=== PATIENT | female | born 1960 | race Caucasian/White ===

== ENCOUNTER 2017-01-23 10:04 | Inpatient (IN) | payer OTHER ==
[~2017-01-23] VITALS: Ht 165.1 cm; Wt 93.2 kg
[2017-01-23] MEDS ORDERED: ONDANSETRON 4MG/2ML VIAL (J2405) As Ordered ONE ×2 (10:58→14:13)
[2017-01-23] MEDS ORDERED: ONDANSETRON 4 MG ORAL DISINTEGRATING TAB (S0181) PO ONE (11:00)
[2017-01-23] MEDS ORDERED: ONDANSETRON 4MG/2ML VIAL (J2405) IV ONE (11:00)
[2017-01-23] MEDS ORDERED: KETOROLAC 30 MG/ML VIAL (J1885) IV ONE (11:00)
[2017-01-23] MEDS ORDERED: MORPHINE 2 MG/ML 1ML SYRINGE IV ONE (11:00)
[2017-01-23 11:04] LABS: BASO % 0.3 % (0.0-1.0); IMMATURE GRANULOCYTE % 0.6 % (0-0); LYMPH # 0.5 10^3/uL (1.5-4.5); LYMPH % 4.4 % (24.0-44.0); MEAN CORPUSCULAR HGB CONC 34.3 g/dl (32.0-36.5); MEAN CORPUSCULAR VOLUME 87.6 fl (80.0-96.0); MONO # 0.4 10^3/uL (0.0-0.8); MONO % 4.2 % (0.0-5.0); NEUTROPHILS # 9.4 10^3/uL (1.8-7.7); NEUTROPHILS % 90.5 % (36.0-66.0); PLATELET COUNT, AUTOMATED 215 10^3/uL (150-450); RED CELL DISTRIBUTION WIDTH 12.5 % (11.5-14.5); WHITE BLOOD COUNT 10.4 10^3/uL (4.0-10.0)
[2017-01-23] MEDS ORDERED: ACETAMINOPHEN 325 MG TAB PO ONE (11:15)
[2017-01-23 11:18] LABS: INR 1.12
[2017-01-23 11:27] LABS: ALBUMIN 3.5 GM/DL (3.2-5.2); ALBUMIN/GLOBULIN RATIO 0.95 (1.00-1.93); ALKALINE PHOSPHATASE 70 U/L (45-117); ALT/SGPT 36 U/L (12-78); ANION GAP 7 MEQ/L (8-16); AST/SGOT 11 U/L (15-37); BILIRUBIN,TOTAL 0.8 MG/DL (0.2-1.0); BLOOD UREA NITROGEN 9 MG/DL (7-18); CARBON DIOXIDE LEVEL 27 MEQ/L (21-32); CHLORIDE LEVEL 104 MEQ/L (98-107); CREATININE FOR GFR 0.86 MG/DL (0.55-1.02); GLOMERULAR FILTRATION RATE > 60.0 (>51); GLUCOSE, FASTING 150 MG/DL (70-105); POTASSIUM SERUM 4.1 MEQ/L (3.5-5.1); SODIUM LEVEL 138 MEQ/L (136-145); TOTAL PROTEIN 7.2 GM/DL (6.4-8.2)
[2017-01-23] MEDS ORDERED: ISOVUE-370 76% 100ML VIAL (Q9967) As Ordered ONE (11:30)
--- NOTE | 2017-01-23 12:06 | REP ---
CT of the abdomen and pelvis with IV contrast, without bowel contrast: The appendix is distended measuring up to 15 mm in diameter. This a calculus in the gallbladder neck. The gallbladder wall is thickened and demonstrates enhancement. There is edema/inflammation in the periappendiceal mesentery. There are tiny air bubbles in the periappendiceal mesentery compatible with microperforation. The there is no pneumoperitoneum otherwise. There is no ascites. No bowel distension. The visualized lung spear are unremarkable. The hepatic parenchyma, gallbladder, pancreas, spleen, adrenals, kidneys and abdominal aorta are unremarkable. There is a small hiatal hernia. In the pelvis the uterus and adnexa are unremarkable. There are occasional diverticula in the descending colon and sigmoid colon without diverticulitis. Impression: Acute appendicitis with microperforation. No ascites. Small hiatal hernia. Diverticulosis without diverticulitis. Otherwise, negative CT of the abdomen and pelvis. Signed by Duncan Rock MD 01/23/2017 11:57 A
[2017-01-23] MEDS ORDERED: PIPERACILLIN/TAZOBACTAM SOD 3.375 GM in D5W 50 ML IV ONE (12:15)
[2017-01-23] MEDS ORDERED: ZOSYN 3.375 GM VIAL (J2543) As Ordered ONE (12:30)
[2017-01-23] MEDS ORDERED: BUPIVACAINE/EPIN 0.25% 30 ML VIAL As Ordered ONE (13:26)
[2017-01-23] MEDS ORDERED: PHENYLephrine HCL 500 MCG/5 ML (100MCG/ML) SYRINGE (J2370) As Ordered ONE (14:49)
[2017-01-23] MEDS ORDERED: fentaNYL 100 MCG/2 ML INJECTION (J3010) As Ordered ONE ×3 (14:55→16:20)
[2017-01-23] MEDS ORDERED: PROPOFOL 200 MG/20 ML VIAL As Ordered ONE (14:55)
[2017-01-23] MEDS ORDERED: MIDAZOLAM INJ 2 MG/2 ML VIAL (J2250) As Ordered ONE (14:55)
[2017-01-23] MEDS ORDERED: ROCURONIUM BROMIDE 50 MG/5 ML VIAL/SYRINGE As Ordered ONE (14:55)
[2017-01-23] MEDS ORDERED: NEOSTIGMINE 10 MG/10 ML VIAL (J2710) As Ordered ONE (14:56)
[2017-01-23] MEDS ORDERED: GLYCOPYRROLATE INJ 0.2 MG/ML 2 ML VIAL As Ordered ONE (14:56)
[2017-01-23] MEDS ORDERED: METOCLOPRAMIDE INJ 10MG/2ML VIAL (J2765) As Ordered ONE (14:56)
[2017-01-23] MEDS ORDERED: LIDOCAINE 2% INJ 100 MG/5 ML SDV (FOR ANES.) As Ordered ONE (14:56)
[2017-01-23] MEDS ORDERED: LABETALOL HCL 100 MG/20 ML VIAL As Ordered ONE (16:03)
[2017-01-23] MEDS ORDERED: MORPHINE 2 MG/ML 1ML SYRINGE IV PRN (16:15)
[2017-01-23] MEDS ORDERED: PERCOCET 5MG/325MG TAB As Ordered ONE (16:20)
[2017-01-23] MEDS: fentaNYL 100 MCG/2 ML INJECTION (J3010) IV PRN ×4 (16:26→16:48)
[2017-01-23] MEDS ORDERED: LR 1,000 ML IV SCH (16:30)
[2017-01-23] MEDS ORDERED: HYDROmorphone HCL 1 MG/ML SYRINGE (J1170) IV PRN (16:30)
[2017-01-23] MEDS ORDERED: ONDANSETRON 4MG/2ML VIAL (J2405) IV PRN (16:30)
[2017-01-23] MEDS ORDERED: METOCLOPRAMIDE INJ 10MG/2ML VIAL (J2765) IV PRN (16:30)
[2017-01-23] MEDS ORDERED: PERCOCET 5MG/325MG TAB PO PRN (16:30)
[2017-01-23] MEDS: LR 1,000 ML IV SCH (16:34)
--- NOTE | 2017-01-23 17:14 | HPE ---
DATE OF ADMISSION: 01/23/2017 CHIEF COMPLAINT: Abdominal pain. HISTORY OF PRESENT ILLNESS The patient is a 56-year-old female who presents with right lower quadrant abdominal pain that started on . It had originally started off periumbilically, gradually progressed down towards the right lower quadrant, was associated with chills and some nausea. No changes in bowel movements. No recent trauma or travel. She came into emergency room this morning, was found to have acute appendicitis on CT, and I was called to evaluate. Currently she is still having chills and nausea. The pain is mainly located in the right lower quadrant. No rebounding or guarding. No other complaints at this time. PAST MEDICAL HISTORY: Positive for umbilical hernia. PAST SURGICAL HISTORY: Tubal ligation. ALLERGIES: None. HOME MEDICATIONS: None. SOCIAL HISTORY: Denies drug, alcohol, tobacco. FAMILY HISTORY: Noncontributory. REVIEW OF SYSTEMS: Pertinent positives and negatives stated in history of present illness (HPI). PHYSICAL EXAMINATION: GENERAL: Alert and oriented times three. No acute distress. VITAL SIGNS: Temperature 102.1, pulse 96, respirations 16, blood pressure 149/79, pulse oximetry 96% room air. HEENT: Pupils equal round react to light and accommodation. HEART: S1, S2, regular rate and rhythm. LUNGS: Clear to auscultation bilaterally. ABDOMEN: Soft, tender to palpation right lower quadrant. There is incarcerated umbilical hernia that is nontender. EXTREMITIES: No clubbing, cyanosis or edema. LABORATORY DATA White count 10.4, hemoglobin 14.3, platelets 215. Lactic acid 1.4. IMAGING: CT abdomen and pelvis shows a distended appendix up to 50 mm in diameter with micro perforation. ASSESSMENT AND PLAN: The patient is a 56-year-old female with perforated appendicitis. The recommendation is to proceed with laparoscopic possible open appendectomy. She will be taken to the operating room for urgent procedure this afternoon. Postoperatively she will be kept in the hospital until she is afebrile for 24 hours and her white count stays low. If she develops a leukocytosis or increasing fevers, then she will have to stay another day or two. Also she will be on intravenous (IV) fluids, antibiotics and a regular diet postoperatively. JACKELYN
[2017-01-23 17:25] VITALS: BP 136/73
[2017-01-23 17:55] VITALS: BP 142/73
[2017-01-23 18:25] VITALS: BP 133/76
[2017-01-23] MEDS: KETOROLAC 30 MG/ML VIAL (J1885) IV PRN (19:11)
[2017-01-23 19:30] VITALS: BP 136/62
[2017-01-23] MEDS: NORCO, ANEXSIA 5/325MG TABLET (HYDROcodone/ACETAMINOPHEN) PO PRN (20:03)
[2017-01-23] MEDS: ACETAMINOPHEN TAB 650MG DOSE (2X325MG) PO PRN (20:03)
[2017-01-23] MEDS: SENOKOT S TAB PO SCH (20:03)
[2017-01-23] MEDS: PIPERACILLIN/TAZOBACTAM SOD 3.375 GM in D5W 50 ML IV SCH (20:04)
[2017-01-23 20:30] VITALS: BP 129/66
[2017-01-23] MEDS: HEPARIN SOD (PORCINE) 5000 UNITS/ML VIAL SC SCH (21:28)
[2017-01-23 21:31] VITALS: BP 131/63
[2017-01-24] MEDS: PIPERACILLIN/TAZOBACTAM SOD 3.375 GM in D5W 50 ML IV SCH ×4 (01:57→20:39)
[2017-01-24] MEDS: LR 1,000 ML IV SCH (01:57)
[2017-01-24] MEDS: ONDANSETRON 4MG/2ML VIAL (J2405) IV PRN ×3 (02:00→19:52)
[2017-01-24 02:01] VITALS: BP 140/77
[2017-01-24] MEDS: ACETAMINOPHEN TAB 650MG DOSE (2X325MG) PO PRN ×2 (03:15→15:40)
[2017-01-24] MEDS: HEPARIN SOD (PORCINE) 5000 UNITS/ML VIAL SC SCH ×3 (06:10→22:20)
[2017-01-24] MEDS: NORCO, ANEXSIA 5/325MG TABLET (HYDROcodone/ACETAMINOPHEN) PO PRN (06:18)
[2017-01-24 06:54] LABS: MEAN CORPUSCULAR HEMOGLOBIN 29.6 pg (27.0-33.0); MEAN CORPUSCULAR HGB CONC 33.5 g/dl (32.0-36.5); MEAN CORPUSCULAR VOLUME 88.3 fl (80.0-96.0); PLATELET COUNT, AUTOMATED 175 10^3/uL (150-450); RED CELL DISTRIBUTION WIDTH 12.7 % (11.5-14.5); WHITE BLOOD COUNT 7.3 10^3/uL (4.0-10.0)
[2017-01-24 07:17] LABS: ANION GAP 7 MEQ/L (8-16); BLOOD UREA NITROGEN 12 MG/DL (7-18); CALCIUM LEVEL 8.1 MG/DL (8.5-10.1); CARBON DIOXIDE LEVEL 27 MEQ/L (21-32); CHLORIDE LEVEL 102 MEQ/L (98-107); CREATININE FOR GFR 0.88 MG/DL (0.55-1.02); GLOMERULAR FILTRATION RATE > 60.0 (>51); GLUCOSE, FASTING 143 MG/DL (70-105); MAGNESIUM LEVEL 1.8 MG/DL (1.8-2.4); POTASSIUM SERUM 3.7 MEQ/L (3.5-5.1); SODIUM LEVEL 136 MEQ/L (136-145)
[2017-01-24 08:00] VITALS: BP 119/61
[2017-01-24] MEDS: KETOROLAC 30 MG/ML VIAL (J1885) IV PRN ×2 (08:24→14:33)
[2017-01-24] MEDS: SENOKOT S TAB PO SCH ×2 (08:24→20:39)
--- NOTE | 2017-01-24 09:17 | RO ---
DATE OF PROCEDURE: 01/23/2017 PREOPERATIVE DIAGNOSIS: Acute appendicitis. POSTOPERATIVE DIAGNOSIS: Acute appendicitis. PROCEDURE: Laparoscopic appendectomy. SURGEON: Dr. Duncan Arredondo [employer] SPECIALIST: None. ANESTHESIA: General. ESTIMATED BLOOD LOSS: 10 mL. COMPLICATIONS: None. INDICATIONS FOR PROCEDURE: The patient is a 56-year-old female who presents with right lower quadrant pain, found to have signs of acute appendicitis with possible micro perforation on CT. Recommendation to proceed with laparoscopic, possible open appendectomy. Risks and benefits of procedure not limited to but including bleeding, infection, hernia formation, damage to surrounding structures, need for further surgery were discussed in detail with the patient. Informed consent was obtained and procedure was planned. DESCRIPTION OF PROCEDURE: The patient was brought back to operating room #3. After sufficient sedation, the abdomen was sterilely prepped and draped. Next, a time-out was done to confirm proper patient, proper procedure. Following that, a 5 mm incision made in the left upper quadrant, Veress needle inserted and the abdomen was insufflated to 15 mmHg. Next, the Veress needle was removed, 5 mm Optiview port was used to gain access to the abdomen. Once the abdomen was entered, an 8 mm port was placed supraumbilically in the midline, another 5 mm port suprapubically just to the right of midline. Next, loops of small bowel were gently teased off away from the right lower quadrant revealing a very large, inflamed and already perforated appendix. This was gently elevated up in the air. Large layers of fat were densely adhered to the top of this. They were carefully dissected free around the base. Then, the mesoappendix was gently dissected through using the Enseal. Once the base of the appendix was reached, there was a viable portion of it. Two PDS Endoloops were placed around this to amputate it. The base of the appendix was then transected using the Enseal and brought out through the supraumbilical port site in an EndoCatch bag. The right lower quadrant was then aspirated. #19-[place] Toby drain was placed there, brought out through the right lower quadrant port site, sutured in place with a #2-0 silk suture. The fascia at the umbilical port site was closed with an #0 Vicryl fascial suture. The abdomen was then desufflated. Skin incisions closed with #4-0 Vicryl subcuticular sutures. The abdomen was cleaned and dried. Steri-Strips, 4 x 4 and tape were applied thus ending procedure.
[2017-01-24 12:00] VITALS: BP 122/66
[2017-01-24 16:00] VITALS: BP 118/59
[2017-01-24 20:00] VITALS: BP 124/65
[2017-01-24] MEDS: SUCRALFATE 1 GM TAB PO SCH (20:39)
[2017-01-25] MEDS: SUCRALFATE 1 GM TAB PO SCH ×4 (00:05→17:59)
[2017-01-25] MEDS: ONDANSETRON 4MG/2ML VIAL (J2405) IV PRN ×3 (01:54→16:38)
[2017-01-25] MEDS: PIPERACILLIN/TAZOBACTAM SOD 3.375 GM in D5W 50 ML IV SCH ×2 (01:54→08:38)
[2017-01-25 03:30] VITALS: BP 130/76
[2017-01-25] MEDS: HEPARIN SOD (PORCINE) 5000 UNITS/ML VIAL SC SCH ×3 (06:39→21:46)
[2017-01-25 06:49] LABS: MEAN CORPUSCULAR HEMOGLOBIN 29.7 pg (27.0-33.0); MEAN CORPUSCULAR HGB CONC 34.8 g/dl (32.0-36.5); MEAN CORPUSCULAR VOLUME 85.4 fl (80.0-96.0); PLATELET COUNT, AUTOMATED 217 10^3/uL (150-450); RED CELL DISTRIBUTION WIDTH 12.3 % (11.5-14.5); WHITE BLOOD COUNT 8.6 10^3/uL (4.0-10.0)
[2017-01-25] MEDS: ACETAMINOPHEN TAB 650MG DOSE (2X325MG) PO PRN ×3 (06:51→20:45)
[2017-01-25 07:03] LABS: ANION GAP 9 MEQ/L (8-16); BLOOD UREA NITROGEN 13 MG/DL (7-18); CALCIUM LEVEL 9.1 MG/DL (8.5-10.1); CARBON DIOXIDE LEVEL 28 MEQ/L (21-32); CHLORIDE LEVEL 97 MEQ/L (98-107); CREATININE FOR GFR 0.73 MG/DL (0.55-1.02); GLOMERULAR FILTRATION RATE > 60.0 (>51); GLUCOSE, FASTING 142 MG/DL (70-105); POTASSIUM SERUM 3.4 MEQ/L (3.5-5.1); SODIUM LEVEL 134 MEQ/L (136-145)
[2017-01-25] MEDS: SENOKOT S TAB PO SCH ×2 (08:38→20:46)
[2017-01-25 09:00] VITALS: BP 128/75
[2017-01-25] MEDS ORDERED: OMEP40CA2 PO (09:51)
[2017-01-25] MEDS ORDERED: AMOX875T2 PO (09:51)
[2017-01-25] MEDS ORDERED: SUCR1TA PO (09:51)
[2017-01-25] MEDS ORDERED: NORCOTAB PO (09:51)
[2017-01-25] MEDS ORDERED: ONDA4TAB6 PO (09:51)
[2017-01-25] MEDS ORDERED: SENN1TAB2 PO (09:51)
[2017-01-25] MEDS: AUGMENTIN 875 MG TAB PO SCH ×2 (10:50→20:45)
[2017-01-25 12:30] VITALS: BP 130/82
[2017-01-25] MEDS ORDERED: PROMETHAZINE INJ 25 MG/ML VIAL (J2550) IV ONE (13:00)
[2017-01-25] MEDS ORDERED: OMEPRAZOLE 20 MG CAP PO ONE (13:00)
[2017-01-25] MEDS: OMEPRAZOLE 20 MG CAP PO SCH (20:46)
[2017-01-26 00:30] VITALS: BP 131/80
[2017-01-26] MEDS: SUCRALFATE 1 GM TAB PO SCH ×2 (00:42→06:09)
[2017-01-26] MEDS: ACETAMINOPHEN TAB 650MG DOSE (2X325MG) PO PRN ×3 (00:42→11:17)
[2017-01-26] MEDS: HEPARIN SOD (PORCINE) 5000 UNITS/ML VIAL SC SCH (06:10)
[2017-01-26 06:53] LABS: MEAN CORPUSCULAR HEMOGLOBIN 29.7 pg (27.0-33.0); MEAN CORPUSCULAR HGB CONC 34.6 g/dl (32.0-36.5); PLATELET COUNT, AUTOMATED 240 10^3/uL (150-450); RED CELL DISTRIBUTION WIDTH 12.2 % (11.5-14.5)
[2017-01-26 07:16] LABS: ANION GAP 9 MEQ/L (8-16); BLOOD UREA NITROGEN 14 MG/DL (7-18); CALCIUM LEVEL 8.5 MG/DL (8.5-10.1); CARBON DIOXIDE LEVEL 31 MEQ/L (21-32); CHLORIDE LEVEL 97 MEQ/L (98-107); CREATININE FOR GFR 0.77 MG/DL (0.55-1.02); GLOMERULAR FILTRATION RATE > 60.0 (>51); GLUCOSE, FASTING 108 MG/DL (70-105); MAGNESIUM LEVEL 2.2 MG/DL (1.8-2.4); SODIUM LEVEL 137 MEQ/L (136-145)
[2017-01-26 08:15] VITALS: BP 139/91
[2017-01-26] MEDS: OMEPRAZOLE 20 MG CAP PO SCH (08:52)
[2017-01-26] MEDS: SENOKOT S TAB PO SCH (08:52)
[2017-01-26] MEDS: AUGMENTIN 875 MG TAB PO SCH (08:52)
--- NOTE | 2017-01-26 14:25 | DSES ---
DATE OF ADMISSION: 01/23/2017 DATE OF DISCHARGE: 01/26/2017 ADMISSION DIAGNOSIS: Acute appendicitis. DISCHARGE DIAGNOSIS: Acute appendicitis with rupture. HOSPITAL COURSE: Patient is a 56-year-old female, presented on the with an appendicitis. She was taken the operating room for laparoscopic appendectomy, found to have a ruptured appendix. This was all removed and a drain was placed. On the morning of the , she was having lots of problems with nausea, vomiting and heartburn. Her medications were altered. She was advised to get up and ambulate and throughout the day she had very slow progress. On the morning of the , she felt significantly improved but she was still having problems with some nausea and keeping food down. Pain was controlled, drain was serous and she had no problems with ambulating or urination. The main contributing factor to her stay was the nausea and the persistent heartburn. She was started on Carafate and omeprazole, and on the morning of the , once her heartburn and nausea were under control, she was able to tolerate her meals without any complications. No more nausea and vomiting in the past 12 hours. Heartburn is relieved and she feels much better and is ready go home today. Plan is to remove her drain, give her some omeprazole to take for a month along with some Carafate for a couple weeks. Also, we will discharge her home with pain medications, stool softener and antibiotic, and she will followup me in the office in 2 weeks.
== END 2017-01-26 11:25 | disposition home or self-care (01) | DRG 340 ==
LOC: M ED 10:04 → M SDC 12:22 → M PED 17:10 → M SDC 01-25 18:14
PROVIDERS: ADMIT Surgery; ATTEND Surgery
PROC: 0DTJ4ZZ Resection of Appendix, Percutaneous Endoscopic Approach (ICD-10-PCS; principal; 2017-01-23 14:00)
DX: K35.3 Acute appendicitis with localized peritonitis (principal)

== ENCOUNTER → 2017-07-28 | Outpatient (CLI) | payer OTHER | LOC: M EKG 14:52 | DX: T88.59XA Other complications of anesthesia, initial encounter (principal) | CPT/HCPCS: 93005 ==

== ENCOUNTER 2017-07-30 06:03 | Day surgery (SDC) | payer OTHER ==
[2017-07-30] MEDS ORDERED: LR 1,000 ML IV ×2 (06:15→09:00)
[2017-07-30] MEDS ORDERED: LIDOCAINE 1% MDV 20ML VIAL SQ (06:15)
[2017-07-30 07:02] LABS: BEDSIDE GLUCOSE 104 MG/DL (70-105)
[2017-07-30] MEDS ORDERED: ROCURONIUM BROMIDE 50 MG/5 ML VIAL As Ordered (07:15)
[2017-07-30] MEDS ORDERED: fentaNYL 100 MCG/2 ML INJECTION (J3010) As Ordered ×3 (07:16→09:00)
[2017-07-30] MEDS ORDERED: PROPOFOL 200 MG/20 ML VIAL As Ordered (07:16)
[2017-07-30] MEDS ORDERED: MIDAZOLAM INJ 2 MG/2 ML VIAL (J2250) As Ordered (07:17)
[2017-07-30] MEDS: LIDOCAINE W/EPINEPHRINE 1% 20ML VIAL As Ordered ×2 (07:46)
[2017-07-30] MEDS ORDERED: ONDANSETRON 4MG/2ML VIAL (J2405) As Ordered (07:55)
[2017-07-30] MEDS ORDERED: KETOROLAC 60 MG/2 ML VIAL (J1885) As Ordered (07:55)
[2017-07-30] MEDS ORDERED: METOCLOPRAMIDE INJ 10MG/2ML VIAL (J2765) As Ordered (07:55)
[2017-07-30] MEDS ORDERED: dexameTHASONE 4 MG/ML 1ML VIAL (J1100) As Ordered (07:55)
[2017-07-30] MEDS ORDERED: GLYCOPYRROLATE INJ 0.2 MG/ML 2 ML VIAL As Ordered (08:18)
[2017-07-30] MEDS ORDERED: NEOSTIGMINE 10 MG/10 ML VIAL (J2710) As Ordered (08:18)
[2017-07-30] MEDS ORDERED: NORCO, ANEXSIA 5/325MG TABLET (HYDROcodone/ACETAMINOPHEN) PO (09:00)
[2017-07-30] MEDS: fentaNYL 100 MCG/2 ML INJECTION (J3010) IV ×4 (09:02→09:17)
[2017-07-30] MEDS: PERCOCET 5MG/325MG TAB PO ×2 (09:26→10:11)
[2017-07-30] MEDS: ONDANSETRON 4MG/2ML VIAL (J2405) IV (09:54)
== END 2017-07-30 13:00 | disposition home or self-care (01) ==
LOC: M SDC 06:03
DX: K42.0 Umbilical hernia with obstruction, without gangrene (principal); D18.01 Hemangioma of skin and subcutaneous tissue; E66.9 Obesity, unspecified; Z68.33 Body mass index [BMI] 33.0-33.9, adult; Z98.51 Tubal ligation status; Z78.0 Asymptomatic menopausal state
CPT/HCPCS: 49653

== ENCOUNTER → 2018-07-19 | Outpatient (REF) | payer OTHER ==
[~2018-07-19] MED LIST: AMOX875T2 PO; HYDR-3715 PO; OMEP40CA2 PO; ONDA4TAB6 PO; SENN1TAB40 PO; SUCR1TA PO
== END ==
LOC: M LAB REF 17:51
PROVIDERS: ATTEND Ophthalmology
DX: D23.111 Other benign neoplasm of skin of right upper eyelid, including canthus (principal); D23.112 Other benign neoplasm of skin of right lower eyelid, including canthus; D23.121 Other benign neoplasm of skin of left upper eyelid, including canthus; D23.122 Other benign neoplasm of skin of left lower eyelid, including canthus

== ENCOUNTER 2018-10-10 09:08 | Day surgery (SDC) | payer OTHER ==
[~2018-10-10] VITALS: Ht 165.1 cm; Wt 85.3 kg
[~2018-10-10 09:08] MED LIST changes: +NS 1,000 ML IV ONE
--- NOTE | 2018-10-10 10:17 | ROOR ---
Patient Name: Trini Garcia Procedure Date: 10/10/2018 10:02 AM Date of : 1960 Age: 58 Room: [facility] Gender: Female Note Status: Finalized Procedure: Total Colonoscopy to Cecum Indications: Screening in patient at increased risk: Colorectal cancer in mother before age 60 Providers: Ck Reid MD Referring MD: Rosy Graff NP Requesting Provider: Medicines: Monitored Anesthesia Care Complications: No immediate complications. Procedure: Pre-Anesthesia Assessment: - The heart rate, respiratory rate, oxygen saturations, blood pressure, adequacy of pulmonary ventilation, and response to care were monitored throughout the procedure. The Colonoscope was introduced through the anus and advanced to the cecum, identified by appendiceal orifice and ileocecal valve. The colonoscopy was performed without difficulty. The patient tolerated the procedure well. The quality of the bowel preparation was excellent. Findings: The perianal and digital rectal examinations were normal. Non-bleeding internal hemorrhoids were found during retroflexion. The hemorrhoids were small and Grade I (internal hemorrhoids that do not prolapse). Multiple small and large-mouthed diverticula were found in the recto-sigmoid colon, sigmoid colon and descending colon. The exam was otherwise without abnormality on direct and retroflexion views. Impression: - Non-bleeding internal hemorrhoids. - Diverticulosis in the recto-sigmoid colon, in the sigmoid colon and in the descending colon. - The examination was otherwise normal on direct and retroflexion views. - No specimens collected. - The exam was otherwise normal to the cecum. Recommendation: - Patient has a contact number available for emergencies. The signs and symptoms of potential delayed complications were discussed with the patient. Return to normal activities tomorrow. Written discharge instructions were provided to the patient. - High fiber diet. - Discharge patient to home. - Continue present medications. - Repeat colonoscopy in 5 years for screening purposes. - Return to referring physician. - The findings and recommendations were discussed with the patient's family. Ck Reid MD Ck Reid MD 10/10/2018 10:17:25 AM Electronically signed by Ck Reid MD Number of Addenda: 0 Note Initiated On: 10/10/2018 10:02 AM Estimated Blood Loss: Estimated blood loss: none.
[2018-10-10] MEDS ORDERED: PROPOFOL 200 MG/20 ML VIAL As Ordered ONE (10:18)
[2018-10-10] MEDS ORDERED: LIDOCAINE 2% INJ 100 MG/5 ML SDV (FOR ANES.) As Ordered ONE (10:18)
[2018-10-10 10:36] VITALS: BP 131/80
== END 2018-10-10 10:45 | disposition home or self-care (01) ==
LOC: M OPP 09:08
PROVIDERS: ATTEND Internal Medicine Gastroenterology
DX: K64.0 First degree hemorrhoids (principal); K57.30 Diverticulosis of large intestine without perforation or abscess without bleeding; Z12.11 Encounter for screening for malignant neoplasm of colon; Z80.0 Family history of malignant neoplasm of digestive organs

== ENCOUNTER → 2020-08-26 | Outpatient (CLI) | payer OTHER ==
[~2020-08-26] MED LIST changes: -NS 1,000 ML IV ONE; -OMEP40CA2 PO; +OMEP40CA97 PO; +SENN-53 PO; -SENN1TAB40 PO
--- NOTE | 2020-08-26 09:17 | REP ---
INDICATION: PAIN COMPARISON: None. TECHNIQUE: AP and frog-lateral views of the left hip FINDINGS: Very subtle age-related changes include sclerosis to the acetabular roof with very minimal joint space narrowing. No further overt arthritic changes. No acute or healed fracture. Surrounding soft tissues are unremarkable. IMPRESSION: Mild age-related changes. <Electronically signed by Enrique Rosales > 08/26/20 0913
== END ==
LOC: M WUC 08:48
PROVIDERS: ATTEND Family Medicine
DX: M25.552 Pain in left hip (principal)

== ENCOUNTER → 2022-09-07 | Outpatient (REF) | payer OTHER ==
[~2022-09-07] MED LIST changes: +OMEP40CA4 PO; -OMEP40CA97 PO
[2022-09-07 19:14] LABS: FERRITIN 27.4 NG/ML (7.3-270.7)
== END ==
LOC: M LAB REF 17:39
PROVIDERS: ATTEND Family Medicine
DX: D50.9 Iron deficiency anemia, unspecified (principal)

== ENCOUNTER → 2022-10-07 | Outpatient (CLI) | payer OTHER ==
[2022-10-09 17:07] LABS: IgG P18 AB Present (.); IgG P23 AB Absent (.); IgG P28 AB Absent (.); IgG P30 AB Absent (.); IgG P39 AB Present (.); IgG P41 AB Present (.); IgG P45 AB Absent (.); IgG P66 AB Absent (.); IgG P93 AB Absent (.); IgM P23 AB Present (.); IgM P39 AB Absent (.); IgM P41 AB Present (.); LYME IgG WB INTERPRETATION Negative (.); LYME IgM WB INTERPRETATION Positive (.)
== END ==
LOC: M WUC 15:44
PROVIDERS: ATTEND Student in an Organized Health Care Education/Training Program
DX: R21 Rash and other nonspecific skin eruption (principal)

== ENCOUNTER → 2023-03-25 | Outpatient (CLI) | payer OTHER | LOC: M WUC 11:53 | PROVIDERS: ATTEND Nurse Practitioner Family | DX: L40.9 Psoriasis, unspecified (principal); M19.042 Primary osteoarthritis, left hand; M19.041 Primary osteoarthritis, right hand ==

== ENCOUNTER → 2023-09-21 | Outpatient (CLI) | payer OTHER ==
[~2023-09-21] MED LIST changes: +ONDA-282 PO; -ONDA4TAB6 PO
[2023-09-21 10:55] LABS: BASO % 0.6 % (0.0-1.0); EOS # 0.1 10^3/uL (0.0-0.5); EOS % 1.1 % (0.0-3.0); HEMATOCRIT 39.7 % (36.0-47.0); HEMOGLOBIN 13.4 g/dl (12.0-15.5); LYMPH # 1.9 10^3/uL (1.5-5.0); LYMPH % 29.3 % (24.0-44.0); MEAN CORPUSCULAR HEMOGLOBIN 30.2 pg (27.0-33.0); MEAN CORPUSCULAR HGB CONC 33.8 g/dl (32.0-36.5); MEAN CORPUSCULAR VOLUME 89.6 fl (80.0-96.0); MONO # 0.5 10^3/uL (0.0-0.8); NEUTROPHILS # 4.1 10^3/uL (1.5-8.5); NEUTROPHILS % 61.7 % (36.0-66.0); PLATELET COUNT, AUTOMATED 247 10^3/uL (150-450); RED BLOOD COUNT 4.43 10^6/uL (4.00-5.40); WHITE BLOOD COUNT 6.6 10^3/uL (4.0-10.0)
[2023-09-21 11:21] LABS: ALBUMIN 3.5 G/DL (3.2-5.2); ALKALINE PHOSPHATASE 74 U/L (46-116); ALT/SGPT 24 U/L (7.0-40); AST/SGOT 11 U/L (<34); BILIRUBIN,TOTAL 0.4 MG/DL (0.3-1.2); BLOOD UREA NITROGEN 18 MG/DL (9-23); CALCIUM LEVEL 9.1 MG/DL (8.3-10.6); CARBON DIOXIDE LEVEL 27 MMOL/L (20-31); CHLORIDE LEVEL 108 MMOL/L (98-107); CREATININE FOR GFR 0.83 MG/DL (0.55-1.30); GLOMERULAR FILTRATION RATE > 60.0 (>45); GLUCOSE, FASTING 64 MG/DL (74-106); POTASSIUM SERUM 4.3 MMOL/L (3.5-5.1); SODIUM LEVEL 140 MMOL/L (136-145); TOTAL PROTEIN 6.2 G/DL (5.7-8.2)
== END ==
LOC: M WUC 09:05
PROVIDERS: ATTEND Physician Assistant
DX: L03.116 Cellulitis of left lower limb (principal)

== ENCOUNTER 2023-12-20 08:55 | Day surgery (SDC) | payer OTHER ==
[~2023-12-20] VITALS: Ht 165.1 cm; Wt 88.2 kg
[~2023-12-20 08:55] MED LIST changes: +ATOR1TAB19 PO; +CETI10CA13 PO
[2023-12-20] MEDS: NS 1,000 ML IV ONE (09:09)
[2023-12-20] MEDS ORDERED: propofoL 200 MG/20 ML VIAL As Ordered ONE (10:43)
[2023-12-20 10:47] VITALS: TEMP 97.6
[2023-12-20 11:00] VITALS: BP 107/56; O2SAT 97
== END 2023-12-20 11:08 | disposition home or self-care (01) ==
LOC: M OPP 08:55
PROVIDERS: ATTEND Internal Medicine Gastroenterology
DX: Z12.11 Encounter for screening for malignant neoplasm of colon (principal); Z80.0 Family history of malignant neoplasm of digestive organs; K64.0 First degree hemorrhoids; K57.30 Diverticulosis of large intestine without perforation or abscess without bleeding; G47.33 Obstructive sleep apnea (adult) (pediatric); Z79.02 Long term (current) use of antithrombotics/antiplatelets; Z79.1 Long term (current) use of non-steroidal anti-inflammatories (NSAID)